=== PATIENT | female | born 1995 | race Caucasian/White ===

== ENCOUNTER 2017-03-26 22:20 | Emergency (ER) | payer SELFPAY ==
[~2017-03-26] VITALS: Ht 175.3 cm; Wt 85.0 kg
[~2017-03-26 22:20] MED LIST: DICL75 PO; METF500 PO; MMW SWISH-SPIT; PENI500T PO; PROZ20CA11 PO; ROPI.5 PO
[2017-03-26 22:21] VITALS: BP 138/94; PULSE 82; RESP 16; TEMP 98.6; O2SAT 96
[2017-03-26] MEDS ORDERED: PROZ20CA11 PO (23:40)
[2017-03-26] MEDS ORDERED: METF500T PO (23:40)
[2017-03-26] MEDS ORDERED: ROPI.5 PO (23:40)
[2017-03-26] MEDS ORDERED: TRAZ50TA12 PO (23:40)
[2017-03-26] MEDS ORDERED: LEXA5TAB PO (23:40)
[2017-03-26] MEDS ORDERED: IBUPROFEN 600 MG TAB PO ONE (23:45)
[2017-03-26] MEDS ORDERED: ACETAMINOPHEN/HYDROcodone 325 MG/5 MG TAB PO ONE (23:45)
[2017-03-26] MEDS ORDERED: IBUP-232 PO (23:46)
[2017-03-26] MEDS ORDERED: TYLETAB34 PO (23:46)
--- NOTE | 2017-03-26 23:46 | PD ---
HPI Chief Complaint: Oral / Dental Pain or Problem Time Seen by Provider: 23:28 Travel History International Travel<30 days: No Contact w/Intl Traveler<30days: No Traveled to known affect area: No History of Present Illness HPI 22-year-old female complains of dental pain. Patient states that the pain is sharp shooting pain localized to left lower gum area. Patient denies any pain radiation. Patient states that she has been seen by dentist and put on clindamycin. Patient has been taking clindamycin as directed. Patient is not taking any medication for pain at home. PFSH Past Medical History Depression: Yes Cancer: Yes (skin) Diabetes: Yes ("BORDERLINE" ON MEDS) Patient Takes Glucophage: Yes Diminished Hearing: No Immunizations Current: Yes ?: Not LMP: END OF LAST MONTH Past Surgical History Other Surgery: Yes (skin cancer lt hand face lt nipple) Social History Alcohol Use: No Tobacco Use: Yes (09/04 pk) Allergies-Medications (Allergen,Severity, Reaction): Coded Allergies: No Known Allergies (Unverified , 03/07/16) Reported Meds & Prescriptions Reported Meds & Active Scripts Active Reported Trazodone (Trazodone HCl) 50 Mg Tab Unknown Dose PO HS Lexapro (Escitalopram Oxalate) 5 Mg Tab Unknown Dose PO DAILY Metformin (Metformin HCl) 500 Mg Tab 500 Mg PO BIDPC With meals Requip (Ropinirole HCl) 0.5 Mg Tab 0.5 Mg PO HS Prozac (Fluoxetine HCl) 20 Mg Cap 20 Mg PO DAILY Review of Systems General / Constitutional: No: Fever Eyes: No: Visual changes HENT: No: Headaches Cardiovascular: No: Chest Pain or Discomfort Respiratory: No: Shortness of Breath Gastrointestinal: No: Abdominal Pain Genitourinary: No: Dysuria Musculoskeletal: No: Pain Skin: No Rash Neurologic: No: Weakness Psychiatric: No: Depression Endocrine: No: Polydipsia Hematologic/Lymphatic: No: Easy Bruising Physical Exam Narrative GENERAL: Well-nourished, well-developed patient. SKIN: Focused skin assessment warm/dry. HEAD: Normocephalic. EYES: No scleral icterus. No injection or drainage. NECK: Supple, trachea midline. No JVD or lymphadenopathy. CARDIOVASCULAR: Regular rate and rhythm without murmurs, gallops, or rubs. RESPIRATORY: Breath sounds equal bilaterally. No accessory muscle use. GASTROINTESTINAL: Abdomen soft, non-tender, nondistended. MUSCULOSKELETAL: No cyanosis, or edema. BACK: Nontender without obvious deformity. No CVA tenderness. Patient has tenderness on palpation left lower gum area. No soft tissue swelling. No evidence of abscess. Data Data Last Documented VS Vital Signs Date Time Temp Pulse Resp B/P Pulse Ox O2 Delivery O2 Flow Rate FiO2 03/26/17 22:21 98.6 82 16 138/94 96 Room Air Orders Acetamin-Hydrocod 325-5 Mg ([place] 5-325 (03/26/17 23:45) [facility] Medical Decision Making Medical Screen Exam Complete: Yes Emergency Medical Condition: Yes Differential Diagnosis Differential diagnosis including dental pain, dental abscess. Narrative Course 22-year-old female with dental pain. Motrin 600 mg by mouth. Lortab 5/325, one tablet by mouth given. Diagnosis Primary Impression: Pain, dental Patient Instructions: Narcotic given in the ED Additional Instructions: Take medication as directed for pain. Continue with clindamycin. Follow-up with a dentist. Med/Other Pt SpecificInfo: Prescription(s) given Scripts Acetaminophen-Codeine (Tylenol-Codeine #3)300-30 mg Tab1 Tab PO Q6HR PRN (PAIN SCALE 1 TO 10) #20 TAB Prov:Torrey Sherman MD 03/26/17 Ibuprofen 600 Mg Qek838 Mg PO TID #30 TAB Prov:Torrey Sherman MD 03/26/17 Disposition: 01 DISCHARGE HOME Condition: Stable Torrey Sherman MD Mar 26, 2017 23:46
== END 2017-03-26 23:56 | disposition home or self-care (01) ==
LOC: NEPD 22:20
DX: K08.89 Other specified disorders of teeth and supporting structures (principal); R73.03 Prediabetes; F32.9 Major depressive disorder, single episode, unspecified; F17.200 Nicotine dependence, unspecified, uncomplicated; Z79.899 Other long term (current) drug therapy
CPT/HCPCS: 99283